=== PATIENT | male | born 1960 | race Caucasian/White ===

== ENCOUNTER 2018-11-06 13:19 | Emergency (ER) | payer OTHER ==
[~2018-11-06] VITALS: Ht 182.9 cm; Wt 138.3 kg
[~2018-11-06 13:19] MED LIST: AVALIDE 300-12.1 TAB; COREG CR20 MG; DICY20TA PO; PROTONIX40 MG PO; ZANTAC300 MG PO
[2018-11-06] MEDS ORDERED: FORTAMET500 MG (13:42)
== END 2018-11-06 21:48 | disposition home or self-care (01) ==
LOC: ER 13:19
DX: K52.9 Noninfective gastroenteritis and colitis, unspecified (principal)